=== PATIENT | female | born 1975 | race Caucasian/White ===

== ENCOUNTER 2021-01-02 08:01 | Day surgery (SDC) | payer OTHER ==
[~2021-01-02 08:01] MED LIST: TORADOL PO; [UNRECOGNIZED DRUG - OTHER] PO
[2021-01-02] MEDS ORDERED: NABUMETONE500 MG PO (14:03)
[2021-01-02] MEDS ORDERED: PERCOCET 5-3251 EACH PO (14:03)
== END 2021-01-02 19:50 | disposition home or self-care (01) ==
LOC: CIR.AMB 08:01
PROVIDERS: ATTEND Orthopaedic Surgery
DX: S83.211A Bucket-handle tear of medial meniscus, current injury, right knee, initial encounter (principal); M94.261 Chondromalacia, right knee; M65.861 Other synovitis and tenosynovitis, right lower leg; Z20.822 Contact with and (suspected) exposure to COVID-19

== ENCOUNTER 2021-01-12 08:00 | Outpatient (CLI) | payer OTHER ==
[~2021-01-12 08:00] MED LIST changes: +NABUMETONE500 MG PO; +PERCOCET 5-3251 EACH PO
== END 2021-01-12 08:30 | disposition home or self-care (01) ==
LOC: PPH VACUNA 08:00
DX: Z23 Encounter for immunization (principal)

== ENCOUNTER 2021-02-15 10:15 | Outpatient (CLI) | payer OTHER | END 2021-02-15 10:30 | disposition home or self-care (01) | LOC: PPH VACUNA 10:15 | PROVIDERS: ATTEND Emergency Medicine Pediatric Emergency Medicine | DX: Z23 Encounter for immunization (principal) ==